=== PATIENT | male | born 1980 | race Caucasian/White ===

== ENCOUNTER 2018-08-24 20:30 | Emergency (ER) | payer BC, OTHER ==
[~2018-08-24] VITALS: Ht 193 cm; Wt 86.2 kg
[~2018-08-24 20:30] MED LIST: ANAPROX; EXCEDRIN MIGRA1 EAC1; HYDROCODON-ACE1 EACH; IBUPROFEN; IBUPROFEN 600600 M1 PO; PEPCID20 MG PO; ZANTAC 150MG T150 MG; ZOFRAN ODT4 MG PO
[2018-08-24] MEDS ORDERED: MAPAP500 MG (21:16)
[2018-08-24] MEDS ORDERED: ACETAMINOPHEN1 EACH PO (21:16)
[2018-08-24 21:32] LABS: ABSOLUTE NEUTROPHILS 7.2 thou/uL (1.4-8.2); BASOPHILS 0.4 % (0.0-2.0); EOSINOPHILS 0.5 % (0.0-3.0); HEMATOCRIT 49.2 % (42.0-52.0); HEMOGLOBIN 17.1 gm/dL (14.0-18.0); LYMPHOCYTES 8.6 % (24.0-44.0); MCHC 34.6 g/dL (28.0-37.0); MCV 83.6 fL (80.0-100.0); MONOCYTES 7.2 % (1.0-8.0); PLATELET COUNT 224 thou/uL (150-400); POLYS 83.3 % (36.0-66.0); RBC 5.89 mil/uL (4.50-6.00); RDW 13.2 % (10.5-14.5); WBC 8.6 thou/uL (4.0-11.0)
[2018-08-24 21:39] LABS: CALCIUM 8.8 mg/dL (8.5-10.1); CREATININE 0.9 mg/dL (0.7-1.3); POTASSIUM 3.6 mmol/L (3.5-5.1)
[2018-08-24 21:45] LABS: ALBUMIN 4.4 g/dL (3.4-5.0); TOTAL BILIRUBIN 1.1 mg/dL (<0.1-1.0); TOTAL PROTEIN 7.8 g/dL (6.4-8.2)
[2018-08-24] MEDS ORDERED: ZOFRAN ODT4 MG DISSOLVE (22:20)
[2018-08-24 22:57] VITALS: BP 144/85
== END 2018-08-24 22:50 | disposition home or self-care (01) ==
LOC: ER 20:30
PROVIDERS: Physician Assistant
DX: G43.909 Migraine, unspecified, not intractable, without status migrainosus (principal); M17.0 Bilateral primary osteoarthritis of knee; R11.2 Nausea with vomiting, unspecified; R19.7 Diarrhea, unspecified; K21.9 Gastro-esophageal reflux disease without esophagitis